=== PATIENT | male | born 1980 | race Two or more races ===

== ENCOUNTER 2022-09-02 14:11 | Emergency (ER) | payer OTHER ==
[~2022-09-02] VITALS: Ht 175.3 cm; Wt 141.5 kg
[2022-09-02] MEDS ORDERED: XARELTO15 MG PO (15:32)
== END 2022-09-02 19:19 | disposition home or self-care (01) ==
LOC: ER 14:11
DX: R73.9 Hyperglycemia, unspecified (principal); G44.89 Other headache syndrome; Z20.822 Contact with and (suspected) exposure to COVID-19